=== PATIENT | male | born 1995 | race Caucasian/White ===

== ENCOUNTER 2020-08-15 09:09 | Emergency (ER) | payer OTHER ==
[~2020-08-15] VITALS: Ht 182.9 cm; Wt 119.2 kg
[2020-08-15] MEDS ORDERED: BOOSTRIX/ADACEL VACCINE (DIPHTH/PERTUSS/ACELL/TETANUS) 0.5ML SYR IM ONE (09:45)
[2020-08-15] MEDS ORDERED: CLIN150C14 PO (09:47)
[2020-08-15] MEDS ORDERED: LIDOCAINE 2% MDV 20ML VIAL SC ONE (10:15)
[2020-08-15] MEDS ORDERED: ATEN50TA2 PO (11:13)
[2020-08-15] MEDS ORDERED: LISI-538 PO (11:14)
[2020-08-15] MEDS ORDERED: METF10004 PO (11:32)
[2020-08-15 11:43] VITALS: BP 160/114
== END 2020-08-15 11:45 | disposition home or self-care (01) ==
LOC: M ED 09:09
DX: S61.411A Laceration without foreign body of right hand, initial encounter (principal); W26.8XXA Contact with other sharp object(s), not elsewhere classified, initial encounter; Y92.59 Other trade areas as the place of occurrence of the external cause; Y93.9 Activity, unspecified; Y99.0 Civilian activity done for income or pay; I10 Essential (primary) hypertension